=== PATIENT | female | born 1975 | race Caucasian/White ===

== ENCOUNTER 2019-11-26 21:40 | Day surgery (SDC) | payer OTHER, SELFPAY ==
--- NOTE | ~2019-11-26 | CT_ITS ---
EXAMINATION: CT abdomen pelvis w con INDICATION: Vomiting TECHNIQUE: Computed tomographic images of the abdomen and pelvis were obtained after the administrati on of 100 cc of Omnipaque 350 intravenous contrast. The dose-length product (DLP) was 1620.29 mGy-cm. Automated exposure control and iterative reconstruction technique were employed. COMPARISON: None available FINDINGS: The lung bases are clear. The heart size is normal. There is a small sliding hiatal hernia. A small amount of fluid is seen in the mildly dilated distal esophagus. There also appears to be ing ested material at the gastroesophageal junction. The liver, spleen, pancreas, gallbladder, and adrena l glands are normal. The kidneys are unremarkable. No pathologically enlarged abdominal or pelvic lym ph nodes are identified. There is no free intraperitoneal gas or evidence of bowel obstruction. The a ppendix is normal. There is a 3.7 cm cyst of the left ovary. IMPRESSION: 1. Small hiatal hernia with likely ingested material at the gastroesophageal junction. Endoscopy has been performed at the time of final interpretation. Reviewed, dictated and finalized at location A. IMPRESSION: 1. Small hiatal hernia with likely ingested material at the gastroesophageal ju nction. Endoscopy has been performed at the time of final interpretation.
[2019-11-26 21:40] VITALS: BP 150/104; PULSE 100; RESP 20; TEMP 37.1; O2SAT 100
[2019-11-26] MEDS: ONDANSETRON INJ 4 MG/2 ML VIAL IV PUSH (22:37)
[2019-11-26 22:53] LABS: Basophils Absolute Auto 0.1 K/mm3 (0.0-0.1); Basophils Percent Auto 0.4 % (0.2-1.2); Eosinophils Absolute Auto 0.5 K/mm3 (0-0.3); Eosinophils Percent Auto 2.6 % (0-4.4); Hematocrit 43.6 % (37.0-47.0); Immature Granulocyte Percent A 0.5 % (0-0.5); Lymphocytes Absolute Auto 3.85 K/mm3 (0.9-3.2); Lymphocytes Percent Auto 20.3 % (18.3-44.2); Mean Corpuscular HGB Conc 29.8 g/dl (32-36); Mean Corpuscular Hemoglobin 24.3 pg (26-34); Mean Corpuscular Volume 81.5 fl (80-100); Mean Platelet Volume 12.8 fl (7.4-10.4); Monocytes Absolute Auto 1.4 K/mm3 (0.1-0.6); Monocytes Percent Auto 7.2 % (2.6-8.5); Neutrophils Absolute Auto 13.1 K/mm3 (1.3-6.7); Platelet Count Result 391 k/mm3 (150-375); Red Blood Count 5.35 M/mm3 (4.2-5.4); Red Cell Distribution Width 16.9 % (11.5-14.5)
[2019-11-26 23:04] LABS: Alanine Aminotransferase 17 U/L (4-35); Albumin Level 4.4 g/dL (3.5-5.1); Alkaline Phosphatase 85 U/L (38-126); Aspartate Amino Transferase 21 U/L (14-36); Bilirubin,Total 0.6 mg/dL (0.2-1.3); Blood Urea Nitrogen 11 mg/dL (7-17); Calcium 9.3 mg/dL (8.4-10.2); Carbon Dioxide 30 mmol/L (22-30); Chloride 102 mmol/L (98-107); Estimated CRCL calculation 101 ml/min; Estimated Glomerular Filt Rate > 60; Glucose 94 mg/dL (65-105); Lipase 74 U/L (23-300); Potassium 3.3 mmol/L (3.4-5.0); Sodium 140 mmol/L (137-145)
[2019-11-26] MEDS: PROMETHAZINE HCL 25 MG/ML AMPUL 12.5 MG IV PUSH (23:43)
--- NOTE | 2019-11-27 00:21 | ED.NAVMDI ---
HPI - Nausea/Vomiting/Diarrhea General Chief complaint: Nausea/Vomiting/Diarrhea Stated complaint: N/V Time Seen by Provider: 11/26/19 21:56 History of Present Illness HPI Narrative: Patient is a 44-year-old female who presents ER with acute onset of vomiting. Began earlier this evening after eating dinner. It is not associate with any abdominal pain/diarrhea/burning urination. No flank pain. She does not have a antiemetics at home and cannot stop vomiting so she came here for further evaluation. No known sick contacts. Related Data Allergies Allergy/AdvReac Type Severity Reaction Status Date / Time No Known Allergies Allergy Verified 11/27/19 02:01 Review of Systems Review of Systems: All systems reviewed & are unremarkable except as noted in HPI and below Constitutional: Constitutional: Denies fatigue and Denies fever(s) Cardiovascular: Cardiovascular: Denies chest pain and Denies lightheadedness Gastrointestinal: Gastrointestinal: Denies abdominal pain, Reports belching, Denies diarrhea, Reports nausea and Reports vomiting Genitourinary: Genitourinary: Denies dysuria, Denies flank pain and Denies urinary urgency PMFSH Past Medical History Medical History (Updated 11/27/19 @ 02:17 by Hugh Philip MD) Asthma Food impaction of esophagus GERD (gastroesophageal reflux disease) Lupus Surgical History Surgical History Hx of tonsillectomy Social History Social History Smoking status: Never smoker Tobacco type: cigarettes Gender identity (if verbalized by the patient): Female Exam Narrative: Exam Narrative: GENERAL: Well-appearing, well-nourished, and in no acute distress but holding a emesis bag with vomit in it. HEAD: Normocephalic, atraumatic. ENT: Mucous membranes moist. CHEST: Clear to auscultation. No respiratory distress. HEART: Regular rate and rhythm. Normal peripheral pulses. ABDOMEN: Soft, nontender, nondistended, normal active bowel sounds. EXTREMITIES: Normal range of motion. No edema. SKIN: Warm, dry, no rash. NEURO: Alert and oriented x3. Course Course Emergency Course: Reviewed results with patient. She reports she actually thinks she got some chicken stuck while she was eating which she did not report earlier. She does have some mild discomfort. Glucagon did not improve symptoms. Discussed with GI they will take her to the GI suite. Vital Signs Vital signs: Vital Signs Temperature 98.8 F 11/26/19 21:40 Pulse Rate 100 11/26/19 21:40 Respiratory Rate 20 11/26/19 21:40 Blood Pressure 150/104 H 11/26/19 21:40 Pulse Oximetry 100 11/26/19 21:40 Temperature 98.2 F 11/27/19 01:45 Pulse Rate 86 11/27/19 02:45 Respiratory Rate 19 11/27/19 02:45 Blood Pressure 146/87 H 11/27/19 02:45 Pulse Oximetry 100 11/27/19 02:45 MDM - Nausea/Vomiting/Diarrhea Lab Data Result diagrams: 11/26/19 22:23 11/26/19 22:23 Labs: Lab Results 11/26/19 11/26/19 Range/Units 22:23 22:23 WBC 19.0 H (4.5-10.0) K/mm3 RBC 5.35 (4.2-5.4) M/mm3 Hgb 13.0 (12.0-15.0) g/dL Hct 43.6 (37.0-47.0) % MCV 81.5 (80-100) fl MCH 24.3 L (26-34) pg MCHC 29.8 L (32-36) g/dl RDW 16.9 H (11.5-14.5) % Plt Count 391 H (150-375) k/mm3 MPV 12.8 H (7.4-10.4) fl Immature Gran % (Auto) 0.5 (0-0.5) % Neut % (Auto) 69.0 (45.5-73.1) % Lymph % (Auto) 20.3 (18.3-44.2) % Crenshaw % (Auto) 7.2 (2.6-8.5) % Eos % (Auto) 2.6 (0-4.4) % Baso % (Auto) 0.4 (0.2-1.2) % Lymph # (Auto) 3.85 H (0.9-3.2) K/mm3 Crenshaw # (Auto) 1.4 H (0.1-0.6) K/mm3 Eos # (Auto) 0.5 H (0-0.3) K/mm3 Baso # (Auto) 0.1 (0.0-0.1) K/mm3 Abs Immat Gran (auto) 0.10 H (0.00-0.031) K/mm3 Absolute Neuts (auto) 13.1 H (1.3-6.7) K/mm3 Absolute Nucleated RBC 0.0 (0.0-0.012) K/mm3 Nucleated RBC % 0.0
[2019-11-27] MEDS: GLUCAGON FOR INJ 1 MG VIAL IV PUSH (00:45)
--- NOTE | 2019-11-27 01:12 | WPDANESEPP ---
Anes - Eval Pre Procedure Procedure: EGD Date/Time: 11/27/19 01:12 Surgeon: Malachi Preop Diagnosis: food bolus Pre Op Diagnosis: N/V Patient Data Age: 44 Gender: F Height: 5 ft 5 in Weight: 118.6 kg Last Vital Signs Temp 98.8 F 11/26/19 21:40 Pulse 100 11/26/19 21:40 Resp 20 11/26/19 21:40 BP 150/104 H 11/26/19 21:40 Pulse Ox 100 11/26/19 21:40 Allergies Allergy/AdvReac Type Severity Reaction Status Date / Time No Known Allergies Allergy Verified 11/26/19 21:52 Home Medications Medication Instructions Recorded Confirmed Type No Home Medications 09/08/19 11/26/19 History Laboratory Tests 11/26/19 11/26/19 22:23 22:23 WBC 19.0 K/mm3 H K/mm3 (4.5-10.0) RBC 5.35 M/mm3 M/mm3 (4.2-5.4) Hgb 13.0 g/dL g/dL (12.0-15.0) Hct 43.6 % % (37.0-47.0) MCV 81.5 fl fl (80-100) MCH 24.3 pg L pg (26-34) MCHC 29.8 g/dl L g/dl (32-36) RDW 16.9 % H % (11.5-14.5) Plt Count 391 k/mm3 H k/mm3 (150-375) MPV 12.8 fl H fl (7.4-10.4) Immature Gran % (Auto) 0.5 % % (0-0.5) Neut % (Auto) 69.0 % % (45.5-73.1) Lymph % (Auto) 20.3 % % (18.3-44.2) Riley % (Auto) 7.2 % % (2.6-8.5) Eos % (Auto) 2.6 % % (0-4.4) Baso % (Auto) 0.4 % % (0.2-1.2) Lymph # (Auto) 3.85 K/mm3 H K/mm3 (0.9-3.2) Riley # (Auto) 1.4 K/mm3 H K/mm3 (0.1-0.6) Eos # (Auto) 0.5 K/mm3 H K/mm3 (0-0.3) Baso # (Auto) 0.1 K/mm3 K/mm3 (0.0-0.1) Abs Immat Gran (auto) 0.10 K/mm3 H K/mm3 (0.00-0.031) Absolute Neuts (auto) 13.1 K/mm3 H K/mm3 (1.3-6.7) Absolute Nucleated RBC 0.0 K/mm3 K/mm3 (0.0-0.012) Nucleated RBC % 0.0 % % (0.0-0.2) Sodium 140 mmol/L mmol/L (137-145) Potassium 3.3 mmol/L L mmol/L (3.4-5.0) Chloride 102 mmol/L mmol/L (98-107) Carbon Dioxide 30 mmol/L mmol/L (22-30) BUN 11 mg/dL mg/dL (7-17) Creatinine 0.80 mg/dL mg/dL (0.7-1.0) Estim Creat Clear Calc 101 ml/min ml/min Estimated GFR > 60 (59 - ) Glucose 94 mg/dL mg/dL (65-105) Calcium 9.3 mg/dL mg/dL (8.4-10.2) Total Bilirubin 0.6 mg/dL mg/dL (0.2-1.3) AST 21 U/L U/L (14-36) ALT 17 U/L U/L (4-35) Alkaline Phosphatase 85 U/L U/L (38-126) Total Protein 8.0 g/dL g/dL (6.3-8.2) Albumin 4.4 g/dL g/dL (3.5-5.1) Lipase 74 U/L U/L (23-300) Patient hx anesthesia problems: none Family hx anesthesia problems: none PMFSH Past Medical History Medical History Asthma Lupus Surgical History Surgical History Hx of tonsillectomy Social History Social History Smoking status: Never smoker Tobacco type: cigarettes Gender identity (if verbalized by the patient): Female Exam Day of Procedure 11/27/19 01:12 Patient weight: obese Heart: regular rate and rhythm Lungs: clear to auscultation Airway: Mallampati scale class II Neurological: alert and oriented
[2019-11-27 01:45] VITALS: BP 147/83; PULSE 91; RESP 17; TEMP 36.8; O2SAT 98
--- NOTE | 2019-11-27 01:50 | WPDGICN ---
Assessment and Plan Assessment and plan (1) Food impaction of esophagus: Qualifiers: Encounter type: initial encounter Qualified Code(s): T18.128A - Food in esophagus causing other injury, initial encounter Code(s): T18.128A - Food in esophagus causing other injury, initial encounter Status: Acute Assessment and Plan: will proceed with urgent EGD, she is agreeable, more recommendations after EGD (2) GERD (gastroesophageal reflux disease): Qualifiers: Esophagitis presence: esophagitis presence not specified Qualified Code(s): K21.9 - Gastro-esophageal reflux disease without esophagitis Code(s): K21.9 - Gastro-esophageal reflux disease without esophagitis Status: Acute (3) Asthma: Qualifiers: Asthma severity: unspecified severity Asthma persistence: intermittent Asthma complication type: unspecified Qualified Code(s): J45.20 - Mild intermittent asthma, uncomplicated Code(s): J45.909 - Unspecified asthma, uncomplicated Status: Acute GI Consult Note Consult date/time: 11/27/19 01:50 Reason for consult: food bolus HPI: Mary Vega is a 44 year old female with history of asthma, lupus on remission who came to ER because could not swallow after she ate chicken for dinner last night. She also has reflux but normally does not take anything. Blood work showed leukocytosis, CT scan showed food bolus in distal esophagus. She still can not swallow even own saliva. Never had EGD Review of Systems Constitutional: Constitutional: Denies headache(s) and Denies weakness Eyes: Eyes: Denies blurry vision ENT: Reports Normal hearing present, Denies headache(s) and Denies neck pain Cardiovascular: Cardiovascular: Denies chest pain and Denies dyspnea Respiratory: Respiratory: Denies dyspnea Gastrointestinal: Gastrointestinal: Reports no additional gastrointestinal complaints Genitourinary: Genitourinary: Denies dysuria Musculoskeletal: Musculoskeletal: Denies neck pain Integumentary/Breasts: Skin/Breast: Denies dry skin Neurologic: Reports Normal hearing present, Denies headache(s) and Denies weakness Psychiatric: Psychiatric: Denies anxiety Endocrine: Endocrine: Denies change in body appearance Hematologic/Lymphatic: Hematologic/Lymphatic: Denies easy bleeding Allergic/Immunologic: Allergic/Immunologic: Denies urticaria PMFSH Past Medical History Medical History Asthma Lupus Surgical History Surgical History Hx of tonsillectomy Social History Social History Smoking status: Never smoker Tobacco type: cigarettes Gender identity (if verbalized by the patient): Female Meds Home Medications and Allergies Home Medications Medication Instructions Recorded Confirmed Type No Home Medications 09/08/19 11/26/19 History Allergies Allergy/AdvReac Type Severity Reaction Status Date / Time No Known Allergies Allergy Verified 11/26/19 21:52 Vital Signs Vital Signs - 24 hr 11/26/19 21:40 Temperature 98.8 F Pulse Rate 100 Respiratory Rate 20 Blood Pressure 150/104 H Pulse Oximetry 100 Exam Const: General: comfortable and no acute distress HENMT: General nose exam: Normal nares present Eyes: General: appearance normal, both eyes and all related structures Neck: Neck: no JVD Resp: Auscultation: clear to auscultation bilaterally Cardio: Rate: regular rate Rhythm: regular rhythm GI: Inspection: non-distended GI Palp: Yes Soft to palpation Skin: General skin exam: normal color Neuro: General: gait normal Speech: normal speech Extrem: General: normal to inspection Psych: Mental Status: mental status grossly normal Results Labs CBC & Chem 7: 11/26/19 22:23 11/26/19 22:23 Labs: Short CBC
[2019-11-27] MEDS: LACTATED RINGERS 1,000 ML 150 ML IV CONT (02:10)
[2019-11-27 02:25] VITALS: BP 146/97; PULSE 99; RESP 19; O2SAT 100
[2019-11-27 02:35] VITALS: BP 162/91; PULSE 93; RESP 19; O2SAT 100
[2019-11-27 02:45] VITALS: BP 146/87; PULSE 86; RESP 19; O2SAT 100
== END 2019-11-27 01:03 ==
LOC: ANHED 22:03 → ANHSURGERY 11-29 10:01
PROVIDERS: Emergency Provider Emergency Medicine; PCP Nurse Practitioner Family; Visit Provider Internal Medicine Gastroenterology
PROC: 0DJ08ZZ Inspection of Upper Intestinal Tract, Via Natural or Artificial Opening Endoscopic (ICD-10-PCS; CPT 43235; principal; 2019-11-27 02:00)
DX: T18.128A Food in esophagus causing other injury, initial encounter (principal); K22.2 Esophageal obstruction; K21.0 Gastro-esophageal reflux disease with esophagitis; K44.9 Diaphragmatic hernia without obstruction or gangrene; R11.2 Nausea with vomiting, unspecified; K21.9 Gastro-esophageal reflux disease without esophagitis; J45.909 Unspecified asthma, uncomplicated; M32.9 Systemic lupus erythematosus, unspecified
CPT/HCPCS: 43239; 43247; 36415; 74177; 80053; 81025; 83690; 85025; 88305; 96374; 96375; 99285; J0330; J1610; J2001; J2405; J2550; J2704; J7120; Q9967

== ENCOUNTER 2023-02-18 09:22 | Emergency (ER) | payer OTHER, SELFPAY ==
--- NOTE | ~2023-02-18 | CT_ITS ---
EXAMINATION: CT abdomen pelvis w con DATE: 02/18/2023 10:14 INDICATION: Right upper quadrant abdominal pain. Epigastric abdominal pain. TECHNIQUE: Computed tomography (CT) of the abdomen and pelvis was performed with 100 mL Omnipaque 350 intravenous contrast. Automated exposure control and iterative reconstruction technique were employe d. The dose-length product was 1612.81 mGy-cm. COMPARISON: CT abdomen and pelvis 11/26/2019 FINDINGS: The visualized portions of the lung bases demonstrate minimal atelectasis. No pleural effus ion. The heart size is normal. No pericardial effusion. There is a moderate-sized sliding hiatal yessenia ia. The liver, gallbladder, spleen, pancreas, adrenal glands, and kidneys are normal. There are no di lated loops of bowel. The appendix is normal. There is diverticulosis of the colon without evidence o f diverticulitis. There are no pathologically enlarged lymph nodes. There is no free intraperitoneal fluid. The bones are unremarkable. IMPRESSION: 1. Moderate-sized sliding hiatal hernia. Reviewed, dictated and finalized at location A.
[2023-02-18 09:30] VITALS: BP 134/79; PULSE 81; RESP 15; O2SAT 99
[2023-02-18 09:46] LABS: Basophils Absolute Auto 0.1 K/mm3 (0.0-0.1); Basophils Percent Auto 0.3 % (0.2-1.2); Eosinophils Absolute Auto 0.4 K/mm3 (0-0.3); Eosinophils Percent Auto 2.4 % (0-4.4); Hematocrit 42.6 % (37.0-47.0); Hemoglobin 12.9 g/dL (12.0-15.0); Immature Granulocyte Absolute 0.06 K/mm3 (0.00-0.031); Immature Granulocyte Percent A 0.4 % (0-0.5); Lymphocytes Absolute Auto 2.52 K/mm3 (0.9-3.2); Lymphocytes Percent Auto 16.6 % (18.3-44.2); Mean Corpuscular HGB Conc 30.3 g/dl (32-36); Mean Corpuscular Hemoglobin 26.9 pg (26-34); Mean Corpuscular Volume 88.9 fl (80-100); Mean Platelet Volume 11.8 fl (7.4-10.4); Monocytes Absolute Auto 1.2 K/mm3 (0.1-0.6); Monocytes Percent Auto 7.6 % (2.6-8.5); Neutrophils Absolute Auto 11.1 K/mm3 (1.3-6.7); Neutrophils Percent Auto 72.7 % (45.5-73.1); Platelet Count Result 349 k/mm3 (150-375); Red Blood Count 4.79 M/mm3 (4.2-5.4); Red Cell Distribution Width 15.2 % (11.5-14.5); White Blood Count 15.2 K/mm3 (4.5-10.0)
[2023-02-18 09:50] LABS: Alanine Aminotransferase 16 U/L (6-35); Alkaline Phosphatase 82 U/L (38-126); Anion Gap 4 mmol/L (8-16); Aspartate Amino Transferase 17 U/L (14-36); Bilirubin,Total 0.6 mg/dL (0.2-1.3); Blood Urea Nitrogen 6 mg/dL (7-17); Calcium 8.5 mg/dL (8.4-10.2); Carbon Dioxide 28 mmol/L (22-30); Chloride 103 mmol/L (98-107); Estimated CRCL calculation 106 ml/min; Estimated Glomerular Filt Rate > 60; Glucose 104 mg/dL (65-110); Lipase 57 U/L (23-300); Potassium 3.8 mmol/L (3.4-5.0); Sodium 135 mmol/L (137-145)
--- NOTE | 2023-02-18 09:58 | ED.ABDPAIN ---
HPI - Abdominal Pain General Chief Complaint: Abdominal Pain Stated Complaint: RUQ pain Time Seen by Provider: 02/18/23 09:24 Source: patient Mode of arrival: ambulatory Limitations: no limitations History of Present Illness HPI narrative: Patient is a 47-year-old female who presents ED with report of RUQ abdominal pain. Patient reports she has had intermittent pain in the past, however the pain has been more severe over the last couple of days, progressively worsening. Worse last night and into today. No radiation of pain. She tried taking ibuprofen without relief. Patient mentions she has been evaluated for elevated liver enzymes in the past and was told she needed to have a CT scan performed, but never followed up with this. She does still have a gallbladder. Patient reports some nausea, subjective fevers, denies any vomiting, diarrhea, constipation, rectal bleeding, urinary sx's, chest pain, shortness of breath. Related Data Allergies Allergy/AdvReac Type Severity Reaction Status Date / Time No Known Allergies Allergy Verified 11/27/19 02:01 Review of Systems Review of Systems: CONSTITUTIONAL: See HPI. CARDIOVASCULAR: Denies chest pain. RESPIRATORY: Denies dyspnea. GASTROINTESTINAL: See HPI. GENITOURINARY: Denies dysuria or hematuria. SKIN: Denies rash or itching. MUSCULOSKELETAL: Denies back pain, joint pain, or myalgia. All systems reviewed & are unremarkable except as noted in HPI and below PMFSH Past Medical History Medical History Asthma Food impaction of esophagus GERD (gastroesophageal reflux disease) Lupus Surgical History Surgical History Hx of tonsillectomy Social History Social History Smoking status: Never smoker Tobacco type: cigarettes Gender identity (if verbalized by the patient): Female Exam Narrative: GENERAL: Well appearing, morbidly obese with BMI of 40.9, non-toxic, in no acute distress. HEAD: Normocephalic, atraumatic. NECK: Supple. No adenopathy, no masses. RESPIRATORY: Airway patent, respirations nonlabored. Clear to auscultation bilaterally, no rales, rhonchi, wheezing. CARDIOVASCULAR: Regular rate and rhythm without murmurs, rubs, or gallops. Radial pulses 2+ and equal bilaterally. ABDOMINAL: Soft, mild tenderness in epigastric region and RUQ, no rebound tenderness, nondistended, no hepatosplenomegaly. Normoactive BS. MUSCULOSKELETAL: Moves all extremities. Strength/ROM intact without gross deformities. SKIN: Warm, dry, normal color. No rashes. NEURO: A&O X3. Speech clear. Cranial nerves II-XII grossly intact. Steady gait. No ataxic movements. PSYCHIATRIC: Appropriate mood and affect. Normal interaction. Course Vital Signs Vital signs: Vital Signs Pulse Rate 81 02/18/23 09:30 Respiratory Rate 15 02/18/23 09:30 Blood Pressure 134/79 02/18/23 09:30 Pulse Oximetry 99 02/18/23 09:30 Oxygen Delivery Room Air 02/18/23 09:30 Pulse Rate 71 02/18/23 13:29 Respiratory Rate 20 02/18/23 13:29 Blood Pressure 128/76 02/18/23 13:29 Pulse Oximetry 100 02/18/23 13:29 Oxygen Delivery Room Air 02/18/23 09:30 MDM - Abdominal Pain MDM Narrative Medical decision making narrative: Patient presents ED with several day history of progressively worsening RUQ pain. Vitals stable upon arrival. CBC with leukocytosis of 15.2. CMP unremarkable. Normal LFTs and lipase. CT abdomen pelvis obtained showing moderate sized hiatal hernia. GB, liver, pancreas noted to be normal. Patient updated on lab and imaging results. Unclear etiology to leukocytosis at this time. Denying any other infectious symptoms. She is feeling better with supportive therapy. Will be discharged at this time. Recommended omeprazole for acid reflux management, GI and PCP follow-up. Return p
[2023-02-18] MEDS: MORPHINE SULFATE (*CRX) 4 MG/ML INJ IV PUSH (10:19)
[2023-02-18] MEDS: PANTOPRAZOLE SODIUM IV 40 MG VIAL IV PUSH (10:19)
[2023-02-18] MEDS: ONDANSETRON INJ 4 MG/2 ML VIAL IV PUSH (10:19)
[2023-02-18] MEDS: SODIUM CHLORIDE 0.9% IV 1,000 ML 999 ML IV CONT ×2 (10:19→12:34)
[2023-02-18 11:34] LABS: Appearance Urine Clear (Clear); Bilirubin Urine Negative (Negative); Blood Urine Negative (Negative); Color Urine Yellow (Yellow); Glucose Urine UA Negative (Negative); Ketones Urine Negative (Negative); Leukocyte Esterase Ur Negative LEU/UL (Negative); Nitrate Urine Negative (Negative); Protein Urine Negative (Negative); Urobilinogen Urine 0.2 mg/dL (<2.0)
[2023-02-18 11:36] LABS: Add Urine Microscopic? NO; Specific Grav Ur 1.084 (1.001-1.035)
[2023-02-18 13:29] VITALS: BP 128/76; PULSE 71; RESP 20; O2SAT 100
== END 2023-02-18 13:31 | disposition home or self-care (01) ==
PROVIDERS: Emergency Medicine; Emergency Provider Physician Assistant; PCP Nurse Practitioner Family
DX: K44.9 Diaphragmatic hernia without obstruction or gangrene (principal); J45.909 Unspecified asthma, uncomplicated; K21.9 Gastro-esophageal reflux disease without esophagitis
CPT/HCPCS: 36415; 74177; 80053; 81003; 81025; 83690; 85025; 96361; 96374; 96375; 99284; C9113; J2270; J2405; J7030; Q9967

== ENCOUNTER 2023-12-08 18:45 | Emergency (ER) | payer OTHER, SELFPAY ==
[2023-12-08 19:00] VITALS: BP 132/75; PULSE 84; RESP 20; TEMP 37; O2SAT 97
--- NOTE | 2023-12-08 21:38 | PC.NURSE ---
attempted to call patient from waiting room at this time, no answer
--- NOTE | 2023-12-08 23:09 | PC.NURSE ---
patient is still not in waiting room. left without seeing provider
== END 2023-12-08 21:38 | disposition left against medical advice (07) ==
PROVIDERS: PCP Nurse Practitioner Family
DX: R10.11 Right upper quadrant pain (principal)
CPT/HCPCS: 99199

== ENCOUNTER 2023-12-10 10:20 | Emergency (ER) | payer OTHER, SELFPAY ==
[2023-12-10] VITALS (9 sets, daily range): BP systolic 119–136; BP diastolic 44–99; PULSE 70–76; RESP 13–19; TEMP 36.8; O2SAT 97–100
--- NOTE | ~2023-12-10 | CT_ITS ---
EXAMINATION: CT abdomen pelvis w con DATE: 12/10/2023 12:57 INDICATION: Epigastric and right upper quadrant abdominal pain. TECHNIQUE: Computed tomography (CT) of the abdomen and pelvis was performed with 100 mL Omnipaque 350 intravenous contrast. Automated exposure control and iterative reconstruction technique were employe d. The dose-length product was 1639.25 mGy-cm. COMPARISON: CT abdomen and pelvis 02/18/2023 FINDINGS: The visualized portions of the lung bases demonstrate minimal atelectasis. No pleural effus ion. The heart size is normal. No pericardial effusion. There is a moderate-sized sliding hiatal yessenia ia. The liver, gallbladder, spleen, pancreas, adrenal glands, and kidneys are normal. There are no di lated loops of bowel. The appendix is normal. There is diverticulosis of the colon without evidence o f diverticulitis. There are no pathologically enlarged lymph nodes. There is no free intraperitoneal fluid. There is mild lumbar spondylosis. IMPRESSION: 1. Moderate-sized sliding hiatal hernia. Reviewed, dictated and finalized at location A.
--- NOTE | ~2023-12-10 | US_ITS ---
EXAMINATION: US abdomen limited DATE: 12/10/2023 12:13 INDICATION: Right upper quadrant abdominal pain. TECHNIQUE: Multiple grayscale and Doppler ultrasound images of the abdomen were obtained. COMPARISON: CT abdomen and pelvis 02/18/2023 FINDINGS: The visualized portions of the head and body of the pancreas are normal. The liver is babak l without focal lesion. There is normal flow in main portal vein. The gallbladder is normal in size. No gallstones or gallbladder wall thickening. There is no sonographic James's sign. The common duct is normal and measures 2 mm. Right kidney is normal. IMPRESSION: 1. Normal right upper quadrant ultrasound. Reviewed, dictated and finalized at location A.
[2023-12-10 10:51] LABS: Basophils Absolute Auto 0.1 K/mm3 (0.0-0.1); Basophils Percent Auto 0.4 % (0.2-1.2); Eosinophils Absolute Auto 0.4 K/mm3 (0-0.3); Eosinophils Percent Auto 3.1 % (0-4.4); Hematocrit 41.3 % (37.0-47.0); Hemoglobin 12.3 g/dL (12.0-15.0); Immature Granulocyte Absolute 0.07 K/mm3 (0.00-0.031); Immature Granulocyte Percent A 0.5 % (0-0.5); Lymphocytes Absolute Auto 2.61 K/mm3 (0.9-3.2); Lymphocytes Percent Auto 18.1 % (18.3-44.2); Mean Corpuscular HGB Conc 29.8 g/dl (32-36); Mean Corpuscular Hemoglobin 24.8 pg (26-34); Mean Corpuscular Volume 83.3 fl (80-100); Mean Platelet Volume 11.3 fl (7.4-10.4); Monocytes Percent Auto 7.2 % (2.6-8.5); Neutrophils Absolute Auto 10.2 K/mm3 (1.3-6.7); Neutrophils Percent Auto 70.7 % (45.5-73.1); Platelet Count Result 376 k/mm3 (150-375); Red Blood Count 4.96 M/mm3 (4.2-5.4); Red Cell Distribution Width 15.9 % (11.5-14.5); White Blood Count 14.4 K/mm3 (4.5-10.0)
[2023-12-10 10:54] LABS: Appearance Urine Clear (Clear); Bilirubin Urine Negative (Negative); Blood Urine Negative (Negative); Color Urine Yellow (Yellow); Glucose Urine UA Negative (Negative); Ketones Urine Negative (Negative); Leukocyte Esterase Ur Negative LEU/UL (Negative); Nitrate Urine Negative (Negative); Protein Urine Negative (Negative); Specific Grav Ur 1.021 (1.001-1.035); Urobilinogen Urine 0.2 mg/dL (<2.0)
[2023-12-10 11:01] LABS: Alanine Aminotransferase 11 U/L (6-35); Albumin Level 4.3 g/dL (3.5-5.1); Alkaline Phosphatase 77 U/L (38-126); Anion Gap 5 mmol/L (4-12); Aspartate Amino Transferase 16 U/L (14-36); Bilirubin,Total 0.5 mg/dL (0.2-1.3); Blood Urea Nitrogen 15 mg/dL (7-17); Calcium 9.4 mg/dL (8.4-10.2); Carbon Dioxide 28 mmol/L (22-30); Chloride 102 mmol/L (98-107); Estimated CRCL calculation 78 ml/min; Estimated Glomerular Filt Rate 59; Glucose 104 mg/dL (65-110); Lipase 105 U/L (23-300); Potassium 4.3 mmol/L (3.4-5.0); Sodium 135 mmol/L (137-145)
[2023-12-10 11:03] LABS: Add Urine Microscopic? NO
[2023-12-10 11:16] LABS: Anisocytosis 1+; Platelet Estimate Adequate (Adequate); Schistocytes None Seen
--- NOTE | 2023-12-10 11:36 | ED.ABDPAIN ---
HPI - Abdominal Pain General Chief Complaint: Abdominal Pain Stated Complaint: abdominal pain Time Seen by Provider: 12/10/23 10:41 Source: patient Mode of arrival: ambulatory Limitations: no limitations History of Present Illness HPI narrative: Patient presents with RUQ/epigastric abdominal pain of approximately 1 weeks duration. States she was told she had a hiatal hernia approximately a year ago. Presented with this complaint 2 days ago but LWBS. Has been taking ibuprofen. Describes it as a pulling sensation. no palliating/provoking factors. Patient had been Rx omeprazole when seen in the ED with this complaint last year. She does not recall taking this medication specifically though states she is normally good about picking up and taking medications which are prescribed to her. Pain had been intermittent but becoming more constant. She drinks a lot of soda so tried cutting that out for 4 days and drinking a lot of water instead. Typically stools daily though no BM today and scant BM yesterday and the day before. No nausea, vomiting, fever, or chills. Continues to have an appetite. CHUCHO last night. No prior abdominal surgeries. PCP [facility] at [facility]. No prior GI. No history of EGD or colonoscopy. Related Data Allergies Allergy/AdvReac Type Severity Reaction Status Date / Time No Known Allergies Allergy Verified 12/10/23 10:29 [facility] Past Medical History Medical History Asthma Food impaction of esophagus GERD (gastroesophageal reflux disease) Hiatal hernia Lupus Surgical History Surgical History Hx of tonsillectomy Social History Social History Smoking status: Never smoker Tobacco type: cigarettes Gender identity (if verbalized by the patient): Female Exam Narrative: GENERAL: Well-appearing, well-nourished, and in no acute distress. HEAD: Normocephalic, atraumatic. EYES: Non injected, non icteric ENT: Nares clear, no rhinorrhea or epistaxis. NECK: Supple. CHEST: Speaking in full sentences. No respiratory distress. HEART: Regular rate and rhythm. . ABDOMEN: Soft, nondistended. Mild TTP at epigastrium and RUQ but without rigidity or guarding. No other tenderness. Not peritoneal. James sign negative. EXTREMITIES: Normal range of motion. No edema. SKIN: Warm, dry, no rash. NEURO: No focal deficits. Alert and oriented x3. PSYCH: Normal mood and affect. Course Vital Signs Vital signs: Vital Signs Temperature 98.2 F 12/10/23 10:24 Pulse Rate 70 12/10/23 10:24 Respiratory Rate 14 12/10/23 10:24 Blood Pressure 132/84 12/10/23 10:24 Pulse Oximetry 100 12/10/23 10:24 Oxygen Delivery Room Air 12/10/23 10:24 Temperature 98.2 F 12/10/23 10:24 Pulse Rate 73 12/10/23 13:15 Respiratory Rate 15 12/10/23 13:15 Blood Pressure 135/58 L 12/10/23 13:00 Pulse Oximetry 97 12/10/23 13:15 Oxygen Delivery Room Air 12/10/23 10:24 MDM - Abdominal Pain MDM Narrative Medical decision making narrative: Patient presents with epigastric/RUQ pain and mild TTP. In the emergency department they are afebrile with vital signs within normal limits. Hx of hiatal hernia diagnosed when seen with these complaints last year. Prescribed omeprazole at the time and she believes though is not certain if she took this medication. Work up otherwise generally unremarkable except re-demonstrating hiatal hernia. Discharged with another prescription for omeprazole and advised to follow up with PCP and return if new/worsening conditions. Differential Diagnosis Differential diagnosis: Likely abdominal pain, constipation, pancreatitis and other (GERD, hiatal hernia; biliary pathology) Medical Records Attestation: I reviewed the patient's medical records. Medical records narrative: ED note from last year Lab
[2023-12-10] MEDS: PANTOPRAZOLE 40 MG TABLET PO (12:14)
== END 2023-12-10 13:29 | disposition home or self-care (01) ==
PROVIDERS: Emergency Provider Student in an Organized Health Care Education/Training Program
DX: K44.9 Diaphragmatic hernia without obstruction or gangrene (principal); D75.839 Thrombocytosis, unspecified; D72.829 Elevated white blood cell count, unspecified; J45.909 Unspecified asthma, uncomplicated; K21.9 Gastro-esophageal reflux disease without esophagitis; M32.9 Systemic lupus erythematosus, unspecified
CPT/HCPCS: 36415; 74177; 76705; 80053; 81003; 81025; 83690; 85025; 99284; A9270; Q9967